=== PATIENT | female | born 2000 | race Hispanic/Latino ===

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

== ENCOUNTER 2022-05-26 11:57 | Emergency (ER) | payer MEDICAID, OTHER ==
[~2022-05-26] VITALS: Ht 162.6 cm; Wt 84.4 kg
[2022-05-26 12:28] LABS: BASOPHILS % (AUTO) 0.6 % (0.0-5.0); EOSINOPHILS % (AUTO) 2.5 % (0.0-8.0); HEMATOCRIT 37.4 % (36-48); LYMPHOCYTES % (AUTO) 34.8 % (21.0-51.0); MEAN CORPUSCULAR HEMOGLOBIN 21.7 pg (27.0-33.0); MEAN CORPUSCULAR HGB CONC 30.7 g/dL (32.0-36.0); MEAN CORPUSCULAR VOLUME 70.6 fL (80-100); MONOCYTES % (AUTO) 5.6 % (3.0-13.0); NEUTROPHILS % (AUTO) 56.2 % (40.0-77.0); PLATELET COUNT (AUTO) 450 K/uL (130-400); RED CELL DISTRIBUTION WIDTH 16.9 % (11.0-15.5); WHITE BLOOD COUNT (AUTO) 7.9 K/uL (4.8-10.8)
[2022-05-26] MEDS ORDERED: MORPHINE 4 MG SYG IVP ONE (12:30)
[2022-05-26] MEDS ORDERED: ONDANSETRON 4MG INJ IVP ONE (12:30)
[2022-05-26] MEDS ORDERED: 0.9%NACL 1000ML 1,000 ML IV ONE (12:30)
[2022-05-26 12:41] LABS: CREATININE 0.7 mg/dL (0.5-1.5); POTASSIUM 4.2 mmol/L (3.5-5.1)
[2022-05-26 12:45] LABS: ALBUMIN 3.8 g/dL (3.5-5.0)
[2022-05-26 12:49] LABS: APPEARANCE,URINE CLEAR (CLEAR); BILIRUBIN,URINE NEGATIVE (NEGATIVE); COLOR,URINE YELLOW (YELLOW); GLUCOSE, URINE (UA) NEGATIVE (NEGATIVE); KETONES,URINE NEGATIVE (NEGATIVE); LEUKOCYTE ESTERASE ,URINE NEGATIVE (NEGATIVE); NITRATE,URINE NEGATIVE (NEGATIVE); OCCULT BLOOD,URINE NEGATIVE (NEGATIVE); PROTEIN,URINE TRACE mg/dL (NEGATIVE)
[2022-05-26 12:51] LABS: HCG,QUALITATIVE URINE NEGATIVE (NEGATIVE)
[2022-05-26 12:59] LABS: BACTERIA,URINE Moderate /HPF (None Seen); MUCUS,URINE Few LPF (None Seen); RBC,URINE 0-1 /HPF (0-1); SQUAMOUS EPITHELIAL CELL,UR Few /HPF (0-2)
[2022-05-26] MEDS ORDERED: IOHEXOL 350 MG/ML 100ML INFUS..BTL IV ONE (13:55)
[2022-05-26] MEDS ORDERED: NAPR500T6 PO (15:23)
[2022-05-26] MEDS ORDERED: CEPH500B PO (15:23)
[2022-05-26] MEDS ORDERED: CEFTRIAXONE 1G VIAL IVP SCH (15:30)
[2022-05-26 15:50] VITALS: BP 118/54
== END 2022-05-26 15:50 | disposition home or self-care (01) ==
LOC: EDH 11:57
DX: N39.0 Urinary tract infection, site not specified (principal); R11.2 Nausea with vomiting, unspecified; R19.7 Diarrhea, unspecified
CPT/HCPCS: 99285; 74177; 96374; 76856; 96375; 96361; 80053; 83690; 85025; 87077; 87088; 87186; 81001; 81025; 36415; J7030; J0696; J2405; J2270; Q9967

== ENCOUNTER 2024-06-03 16:04 | Emergency (ER) | payer MEDICAID ==
[~2024-06-03] VITALS: Ht 162.6 cm; Wt 93.0 kg
[~2024-06-03 16:04] MED LIST: CEPH500B PO; NAPR500T6 PO
[2024-06-03 16:53] LABS: BASOPHILS # (AUTO) 0.06 K/uL (0.00-0.20); BASOPHILS % (AUTO) 0.7 % (0.0-5.0); EOSINOPHILS # (AUTO) 0.26 K/uL (0.00-0.70); EOSINOPHILS % (AUTO) 3.1 % (0.0-8.0); HEMATOCRIT 44.2 % (36-48); IMMATURE GRANULOCYTE ABSOLUTE 0.01 K/uL (0-1); LYMPHOCYTES # (AUTO) 2.5 K/uL (1.0-4.8); LYMPHOCYTES % (AUTO) 29.9 % (21.0-51.0); MEAN CORPUSCULAR HEMOGLOBIN 27.3 pg (27.0-33.0); MEAN CORPUSCULAR HGB CONC 32.6 g/dL (32.0-36.0); MEAN CORPUSCULAR VOLUME 83.9 fL (79-99); MONOCYTES # (AUTO) 0.6 K/uL (0.1-1.0); MONOCYTES % (AUTO) 7.5 % (3.0-13.0); NEUTROPHILS # (AUTO) 4.9 K/uL (1.8-7.7); NEUTROPHILS % (AUTO) 58.7 % (40.0-77.0); PLATELET COUNT (AUTO) 428 K/uL (130-400); RED BLOOD CELL COUNT(AUTO) 5.27 MIL/uL (4.00-5.50); RED CELL DISTRIBUTION WIDTH 11.9 % (11.0-15.5); WHITE BLOOD COUNT (AUTO) 8.3 K/uL (4.8-10.8)
[2024-06-03 17:02] LABS: CREATININE 0.7 mg/dL (0.5-1.0); POTASSIUM 4.1 mmol/L (3.5-5.1)
[2024-06-03 17:06] LABS: BILIRUBIN,TOTAL 0.2 mg/dL (0.2-1.0); TOTAL PROTEIN, SERUM 8.2 g/dL (6.0-8.3)
[2024-06-03] MEDS: ONDANSETRON ODT 4MG TAB SL ONE (17:49)
[2024-06-03] MEDS: FAMOTIDINE 20MG VIAL IV ONE (18:29)
[2024-06-03] MEDS: ketOROlac 15MG/ML VIAL (15MG/ML) IV ONE (18:30)
[2024-06-03] MEDS ORDERED: FAMO-136 PO (19:08)
[2024-06-03] MEDS ORDERED: KETO10TA2 PO (19:08)
[2024-06-03] MEDS: morPHINE 2 MG SYG IVP ONE (19:37)
[2024-06-03 19:41] VITALS: BP 123/81; PULSE 77; RESP 19; TEMP 98.1; O2SAT 98
== END 2024-06-03 19:42 | disposition home or self-care (01) ==
LOC: EDH 16:04
DX: K80.20 Calculus of gallbladder without cholecystitis without obstruction (principal); R11.2 Nausea with vomiting, unspecified; Z79.899 Other long term (current) drug therapy; Z79.2 Long term (current) use of antibiotics; Z98.890 Other specified postprocedural states
CPT/HCPCS: 99285; 96374; 76705; 96375; 80053; 84703; 83690; 85025; 36415; J2270; J1885; S0028; J3490

== ENCOUNTER 2025-08-23 13:40 | Emergency (ER) | payer BC, MEDICAID ==
[~2025-08-23] VITALS: Ht 162.6 cm; Wt 95.3 kg
[~2025-08-23 13:40] MED LIST changes: +FAMO-136 PO; +KETO10TA2 PO; +NAPR-1506 PO; -NAPR500T6 PO
--- NOTE | 2025-08-23 13:47 | ERN ---
ED Note History of Present Illness Stated Complaint: PELVIC PAIN Chief Complaint: Pelvic Pain Time Seen by MD: 13:43 Dictation: PATIENT IS A 25-YEAR-OLD FEMALE COMING IN WITH LOWER PELVIC PAIN BILATERALLY ONSET WAS THREE WEEKS PRIOR TO ARRIVAL AND SHE DESCRIBES IT CRAMPY. NO VAGINAL PAIN NO CHANGE IN NURSE NO FEVER NO CHILLS SHE STATES SHE HAS BEEN TAKEN HOME TEST AND THEY WERE NEGATIVE. SHE STATES SHE HAS NOT BEEN ABLE TO SEE HER PRIMARY CARE BECAUSE SHE WAS TELLING FEELING TOO BAD. Allergies: Coded Allergies: No Known Drug Allergies (Unverified Allergy, Unknown, 06/24/16) Home Meds Active Scripts Famotidine (Pepcid) 20 Mg Tablet, 20 MG PO BID for 5 Days, #10 TAB Prov:MUMTAZ MONTEMAYOR [facility] 06/03/24 Famotidine (Pepcid) 20 Mg Tablet, 20 MG PO BID for 5 Days, #10 TAB Prov:MUMTAZ MONTEMAYOR [facility] 06/03/24 Ketorolac Tromethamine (Ketorolac Tromethamine) 10 Mg Tablet, 10 MG PO BID for 5 Days, #10 TAB Prov:MUMTAZ MONTEMAYOR [facility] 06/03/24 Naproxen (Naproxen) 500 Mg Tablet.dr, 500 MG PO BIDPC, #15 TAB Prov:FITTINGPAMELLA [facility]ION[facility] 05/26/22 Cephalexin Monohydrate (Keflex) 500 Mg Cap, 500 MG PO QID for 7 Days, #28 CAP Prov:FITTINGPAMELLA [facility] INTERVENTION[facility] 05/26/22 Past Medical History Past Medical History: No Pertinent History Surgical History: History: Not Applicable RN Note Reviewed/Agreed w/PFSH: Yes Review of System Dictation CONSTITUTIONAL: NEGATIVE EXCEPT FOR HPI HEAD/FACE: NEGATIVE EXCEPT FOR HPI EENT: NEGATIVE EXCEPT FOR HPI RESPIRATORY: NEGATIVE EXCEPT FOR HPI GASTROINTESTINAL/ABDOMINAL: NEGATIVE EXCEPT FOR HPI BILATERAL PELVIC CRAMPING GENITOURINARY: NEGATIVE EXCEPT FOR HPI MUSCULOSKELETAL: NEGATIVE EXCEPT FOR HPI INTEGUMENTARY: NEGATIVE EXCEPT FOR HPI NEUROLOGICAL/PSYCH: NEGATIVE EXCEPT FOR HPI HEMATOLOGIC/LYMPHATIC: NEGATIVE EXCEPT FOR HPI ALL SYSTEMS NEGATIVE, EXCEPT NOTED ABOVE. 13 POINT REVIEW OF SYSTEMS ASSESSED AND ALL NEGATIVE EXCEPT FOR ABOVE. Initial Vital Sign VS Vital Signs Date Time Temp Pulse Resp B/P (MAP) Pulse Ox O2 Delivery O2 Flow Rate FiO2 08/23/25 13:43 98.1 81 20 149/87 99 Room Air 08/23/25 13:53 0 21 Physical Exam Dictation VITAL SIGNS REVIEWED GENERAL APPEARANCE: ALERT, ORIENTED X 3, MODERATE ACUTE DISTRESS, WELL DEVELOPED, NOURISHED. OBESE HEAD AND FACE: NON-TRAUMATIC. EYES: PERRL, PINK CONJUNCTIVAS, EYELID NO TRAUMA, ANTERIOR CHAMBER WITH ARCUS SENILIS. EARS: PINNAS INTACT AND NO SIGNS OF TRAUMA OR ERYTHEMA EAR CANALS CLEAR AND NO DISCHARGE TM NO ERYTHEMA NOSE: NO DISCHARGE, NO BLEEDING. OROPHARYNX: MOUTH NORMAL, TONGUE PINK, PHARYNX CLEAR,NO ERYTHEMA, TONSILS NO EXUDATES, NO ABSCESSES NOTED, MUCOUS MEMBRANE MOIST NECK: SUPPLE, NON-TENDER, NO THYROMEGALY, NO MASSES, NO JVD, NO BRUITS BREAST:DEFERRED CHEST:NO TENDERNESS, NO CREPITUS, NO PARADOXICAL MOVEMENT, NO RETRACTIONS LUNGS:CLEAR, WELL-VENTILATED, SYMMETRIC, NO RALES, NO WHEEZING, NO RHONCHI, NO STRIDOR, GOOD BREATH SOUNDS BILATERALLY HEART: REGULAR RATE, REGULAR RHYTHM, NO MURMUR, NO GALLOPS VASCULAR: NO PERIPHERAL EDEMA, ABDOMEN: SOFT, POSITIVE BOWEL SOUNDS, NONDISTENDED, NO GUARDING, DIFFUSE LOWER PELVIC TENDERNESS WITH CRAMPING. RECTAL: DEFERRED GENITAL: DEFERRED NEUROLOGICAL: NORMAL SPEECH, MOTOR FUNCTION INTACT, SENSORY FUNCTION INTACT MUSCULOSKELETAL: NECK NONTENDER, FULL RANGE OF MOTION, BACK NONTENDER, FULL RANGE OF MOTION, EXTREMITIES: NONTENDER, FULL RANGE OF MOTION SKIN: COLOR PINK, DRY, NO TURGOR, NO RASH, NO LACERATIONS, NO ABRASIONS, NO CONTUSIONS. LYMPHATIC: DEFERRED Results (Laboratory/Radiology) Laboratory/Radiology Laboratory Tests Test 08/23/25 13:02 08/23/25 13:51 White Blood Count 7.4 K/uL (4.8-10.8) Red Blood Count 5.49 MIL/uL (4.00-5.50) Hemoglobin 15.1 g/dL (12.0-16.0) Hematocrit 45.7 % (36-48) Mean Corpuscular Volume 83.2 fL (79-99) Mean Corpuscular Hemoglobin 27.5 pg (27.0-33.0) Mean Corpuscular Hemoglobin Concent 33.0 g/dL (32.0-36.0) Red Cell Distribution Width 11.9 % (11.0-15.5) Platelet Count 486 K/uL (130-400) H Mean Platelet Volume 9.0 fL (7.5-10.5) Immature Granulocyte % (Auto) 0.3 % (0-1) Neutrophils (%) (Auto) 56.9 % (40.0-77.0) Lymphocytes (%) (Auto) 34.4 % (21.0-51.0) Monocytes (%) (Auto) 6.2 % (3.0-13.0) Eosinophils (%) (Auto) 1.5 % (0.0-8.0) Basophils (%) (Auto) 0.7 % (0.0-5.0) Neutrophils # (Auto) 4.2 K/uL (1.8-7.7) Lymphocytes # (Auto) 2.5 K/uL (1.0-4.8) Monocytes # (Auto) 0.5 K/uL (0.1-1.0) Eosinophils # (Auto) 0.11 K/uL (0.00-0.70) Basophils # (Auto) 0.05 K/uL (0.00-0.20) Absolute Immature Granulocyte (auto 0.02 K/uL (0-1) Nucleated Red Blood Cells 0.0 % (0.0-0.19) Sodium Level 136 mmol/L (136-145) Potassium Level 3.8 mmol/L (3.5-5.1) Chloride Level 101 mmol/L (101-111) Carbon Dioxide Level 25 mmol/L (21-32) Blood Urea Nitrogen 9 mg/dL (7-18) Creatinine 0.7 mg/dL (0.5-1.0) Glomerular Filtration Rate Calc 125 mL/min (>90) Random Glucose 90 mg/dL (70-105) Total Calcium 9.2 mg/dL (8.5-10.1) Human Chorionic Gonadotropin, Quant 0 mIU/mL (0-5) Urine Color LIGHT-YELLOW (YELLOW) Urine Appearance CLEAR (CLEAR) Urine pH 5.5 (5.0-8.0) Urine Specific Carrier 1.014 (1.001-1.031) Urine Protein NEGATIVE mg/dL (NEGATIVE) Urine Glucose (UA) NEGATIVE mg/dL (NEGATIVE) Urine Ketones 20 mg/dL (NEGATIVE) H Urine Occult Blood NEGATIVE (NEGATIVE) Urine Nitrate NEGATIVE (NEGATIVE) Urine Bilirubin NEGATIVE mg/dL (NEGATIVE) Urine Urobilinogen 0.2 mg/dL (0.2-1.0) Urine Leukocyte Esterase NEGATIVE Yakov/uL Urine RBC 0-1 /HPF (0-1) Urine WBC 0-1 /HPF (0-1) Urine Squamous Epithelial Cells RARE /HPF (0-2) Urine Bacteria RARE /HPF (None Seen) 1625/NON OB ULTRASOUND DEMONSTRATES IUD IN PLACE WITH A LEFT FOLLICULAR CYST. POSITIVE BLOOD FLOW TO BOTH OVARIES Labs Reviewed?: Yes ED Course ED Course Orders Procedure Category Date Status Time Hcg,Quantitative LAB 08/23/25 Complete 13:45 Cbc With Differential LAB 08/23/25 Complete 13:45 Urinalysis Profile LAB 08/23/25 Complete 13:45 0.9%Nacl 1000ml (Ns PHA 08/23/25 Complete 1000ml) 14:00 Morphine 2mg Syg PHA 08/23/25 Complete (Morphine 2mg Syg) 14:00 Ondansetron 4mg Inj PHA 08/23/25 Complete (Zofran 4mg Inj) 14:00 Basic Metabolic Panel LAB 08/23/25 Complete 13:45 Us Pelvic Non-Ob Comp US 08/23/25 Taken 14:45 Ketorolac PHA 08/23/25 Complete Tromethamine 30mg/Ml 15:00 Current Medications Medications (Trade) Dose Ordered Sig/Hayde Route PRN Reason Start Time Stop Time Status Last Admin Dose Admin Ketorolac Tromethamine (toRADol) 30 mg ONCE ONCE IVP 08/23/25 15:00 08/23/25 15:01 DC 08/23/25 15:28 Morphine Sulfate (morPHINE 2MG SYG) 2 mg ONCE ONCE IVP 08/23/25 14:00 08/23/25 14:01 DC 08/23/25 14:31 Ondansetron HCl (zoFRAN 4MG INJ) 4 mg ONCE ONCE IVP 08/23/25 14:00 08/23/25 14:01 DC 08/23/25 14:31 Sodium Chloride 1,000 ml @ 0 mls/hr ONCE ONCE IV 08/23/25 14:00 08/23/25 14:01 DC 08/23/25 14:31 Vital Signs Date Time Temp Pulse Resp B/P (MAP) Pulse Ox O2 Delivery O2 Flow Rate FiO2 08/23/25 13:53 98.1 81 20 149/97 99 Room Air* 0 21 08/23/25 13:43 98.1 81 20 149/87 99 Room Air Medical Decision Making MDM MDM: DIFFERENTIAL DIAGNOSIS: UTI/ECTOPIC /MENORRHAGIA/ELECTROLYTE IMBALANCE/DEHYDRATION/OVARIAN//UTERINE CYST/UTERINE FIBROID RATIONALE: TESTS CONSIDERED AND ORDERED SECONDARY TO SHARED DECISION MAKING INCLUDE: LABS/UA/ULTRASOUND PREVIOUS OUTSIDE RECORDS REVIEWED: OLD ER VISITS. RISK OF COMPLICATION AND/OR MORBIDITY OR MORTALITY OF PATIENT MANAGEMENT: NONE MEDICATIONS-PER MEDICATION RECONCILIATION NEED FOR HOSPITALIZATION: PATIENT DOES NOT MEET CRITERIA FOR HOSPITALIZATION. NONE NEED FOR EMERGENCY MAJOR/MINOR SURGERY: NO THERE ARE NO SOCIAL CONCERNS WITH THIS PATIENT. PRESCRIPTION DRUG MANAGEMENT IBUPROFEN PRESCRIPTIONS WILL INCLUDE SYMPTOMATIC CARE PATIENT'S PRIOR EXTERNAL MEDICAL RECORDS FROM OTHER ER VISITS WERE REVIEWED BY ME INDICATED. PRIOR TESTING AND RESULTS FROM PREVIOUS VISITS WERE REVIEWED. PRIOR TESTS WERE TAKEN INTO ACCOUNT WITH MEDICAL DECISION MAKING AND RESOURCE UTILIZATION, INDEPENDENT HISTORIAN/HISTORIANS WERE USED TO OBTAIN COMPLETE MEDICAL HISTORY. I INDEPENDENTLY INTERPRETED THE TEST THAT WERE PERFORMED, RESULTS WERE REVIEWED BY ME AND CONSIDERED FINDINGS ON RADIOLOGY IF ORDERED. MEDICAL MANAGEMENT AND EXAMINATION INTERPRETATION DISCUSSIONS WERE HAD BY ME WITH OTHER QUALIFIED HEALTHCARE PROFESSIONALS INDICATED FOR THE PATIENT'S CARE. DX & DISP Disposition: Discharge Departure Impression: Primary Impression: Right ovarian cyst Additional Impressions: IUD (intrauterine device) in place, Pelvic pain in female Condition: Stable Scripts Ibuprofen (Ibuprofen 800 mg Tab) 800 Mg Tab 800 MG PO Q8H PRN for fever or pain, #30 TAB 0 Refills Prov: HELENE MEDINA [facility]ILITAT[facility] INTERVENTIONIST 08/23/25 Additional Instructions: FOLLOW-UP WITH PRIMARY CARE PROVIDER IN 1 TO 2 DAYS. TAKE MEDICATIONS DIRECTED HERE IN THE EMERGENCY ROOM. OKAY TO CONTINUE HOME MEDICATIONS UNLESS OTHERWISE DISCUSSED DURING YOUR VISIT IN THE EMERGENCY ROOM TODAY. RETURN TO YOUR NEAREST EMERGENCY ROOM IF SYMPTOMS WORSEN OR IF THERE IS NO IMPROVEMENT. CALL 911 IF YOU NEED IMMEDIATE ASSISTANCE. TAKE TYLENOL OR MOTRIN [id number]-PNBF TER NEEDED AND IF NO CONTRAINDICATIONS ARE PRESENT. INCREASE ORAL HYDRATION. A WOUND CULTURE OR URINE CULTURE WAS ORDERED HERE IN THE EMERGENCY ROOM DEPARTMENT PLEASE FOLLOW-UP WITH PRIMARY CARE PROVIDER AND ADVISE THEM TO GET REPEAT PORTS FROM OUR FACILITY. IF YOU HAD ANY STEW WRAP/SPLINTS THAT WERE APPLIED HERE, PLEASE DO NOT REMOVE THEM UNTIL YOU SEE YOUR PRIMARY CARE OR SP ECIALTY. TAKE IBUPROFEN NEEDED EVERY 6-8 HOURS WITH FOOD FOR PAIN. WARM COMPRESSES TO PELVIS THREE TO 4 TIMES A DAY. SEE YOUR TRAIL CONSTRUCTION WORKER DOCTOR IN THE NEXT 2-3 DAYS FOR FOLLOW UP AND MANAGEMENT OF YOUR OVARIAN CYST PAIN Referrals: HENRRY CANDELARIA (PCP) Time of Disposition: 16:27 I have reviewed the case, and I agree with, Diagnosis and Plan HELENE MEDINA HABILITATIVE INTERVENTIONIST Aug 23, 2025 13:47
[2025-08-23 14:06] LABS: IMMATURE GRANULOCYTE ABSOLUTE 0.02 K/uL (0-1); NUCLEATED RED BLOOD CELLS 0.0 % (0.0-0.19); PLATELET COUNT (AUTO) 486 K/uL (130-400); RED BLOOD CELL COUNT(AUTO) 5.49 MIL/uL (4.00-5.50); RED CELL DISTRIBUTION WIDTH 11.9 % (11.0-15.5); WHITE BLOOD COUNT (AUTO) 7.4 K/uL (4.8-10.8)
[2025-08-23 14:08] LABS: ADD UA MICROSCOPIC YES; APPEARANCE,URINE CLEAR (CLEAR); GLUCOSE, URINE (UA) NEGATIVE (NEGATIVE); LEUKOCYTE ESTERASE ,URINE NEGATIVE Leu/uL (NEGATIVE); NITRATE,URINE NEGATIVE (NEGATIVE); OCCULT BLOOD,URINE NEGATIVE (NEGATIVE)
[2025-08-23 14:10] LABS: SQUAMOUS EPITHELIAL CELL,UR RARE /HPF (0-2)
[2025-08-23 14:30] LABS: CREATININE 0.7 mg/dL (0.5-1.0); GLOMERULAR FILTR. RATE CALC 125.0 mL/min (>90); GLUCOSE,RANDOM 90.0 mg/dL (70-105); SODIUM SERUM 136.0 mmol/L (136-145); UREA NITROGEN, BLOOD 9.0 mg/dL (7-18)
[2025-08-23] MEDS: 0.9%NACL 1000ML 1,000 ML IV ONE (14:31)
[2025-08-23 14:42] LABS: HCG,QUANTITATIVE 0.0 mIU/mL (0-5)
[2025-08-23] MEDS ORDERED: IBUP-2077 PO (16:27)
--- NOTE | 2025-08-23 16:48 | HMCIMG ---
EXAM: US Pelvis, Complete Transvaginal and Transabdominal COMPARISON: None provided. CLINICAL HISTORY: Diffuse lower abdominal and pelvic tenderness. Negative hCG TECHNIQUE: Transvaginal and transabdominal pelvic ultrasound (complete) with image documentation. FINDINGS: ENDOMETRIUM: Normal thickness. UTERUS/CERVIX: The uterus appears within normal limits. No uterine fibroid or other mass evident. Intrauterine contraceptive device is intact and appropriately positioned RIGHT OVARY: Normal Doppler flow. No abnormal mass. Prominent follicle measuring 1.3 x 1.1 cms. LEFT OVARY: Normal Doppler flow. No abnormal mass. FREE FLUID: No free fluid. IMPRESSION: Unremarkable pelvic ultrasound. Intrauterine contraceptive device is intact and appropriately positioned /[place]
[2025-08-23 16:54] VITALS: BP 113/65; PULSE 81; RESP 15; TEMP 98.1; O2SAT 99
== END 2025-08-23 16:55 | disposition home or self-care (01) ==
LOC: EDH 13:40
DX: N83.201 Unspecified ovarian cyst, right side (principal); Z97.5 Presence of (intrauterine) contraceptive device
CPT/HCPCS: 99284; 96374; 96375; 76856; 96361; 80048; 84702; 85025; 81001; 36415; J1100; J1885; J2270; J7030; J2405